=== PATIENT | female | born 1975 | race Caucasian/White ===

== ENCOUNTER 2016-08-19 09:38 | Emergency (ER) | payer OTHER ==
[2016-08-19] MEDS ORDERED: guaiFENesin/CODEINE 5 ML UDC PO STA (11:00)
[2016-08-19] MEDS ORDERED: BENZONATATE 100 MG CAPSULE PO STA (11:00)
[2016-08-19] MEDS ORDERED: guaiFENesin/CODEINE 5 ML UDC ONE (11:04)
[2016-08-19] MEDS ORDERED: BENZONATATE 100 MG CAPSULE PO ONE (11:04)
== END 2016-08-19 12:26 | disposition home or self-care (01) ==
DX: J18.9 Pneumonia, unspecified organism (principal); Z87.891 Personal history of nicotine dependence
CPT/HCPCS: 71020; 99283; 99284; A9270

== ENCOUNTER 2017-05-28 17:05 | Emergency (ER) | payer OTHER ==
--- NOTE | 2017-05-28 17:12 | ED Physician Documentation ---
History of Present Illness - Stated complaint Stated Complaint: SOURCE - History obtained from History obtained from: Patient - History of Present Illness Timing: Other (She was at the dentist today and the hygenist accidentally struck her own hand (the hygenist's), With this patient's scalpel, the patient was sent here for source testing, previous routine screenings for infectious illnesses have been negative and she has had no high risk behaviors in the past. ) Review of Systems Constitutional: reports: Reviewed and negative Cardiac: reports: Reviewed and negative Respiratory: reports: Reviewed and negative PD PAST MEDICAL HISTORY - Past Medical History Neuro: Headache/migraine GI: Other - Past Surgical History Past Surgical History: Yes Ortho: Other - Present Medications Home Medications: Ambulatory Orders Medication Instructions Recorded Confirmed Cetirizine [ZyrTEC] 10 mg PO DAILY 05/28/17 05/28/17 - Allergies Allergies/Adverse Reactions: Allergies Allergy/AdvReac Type Severity Reaction Status Date / Time No Known Drug Allergies Allergy Verified 08/19/16 09:41 - Social History Does the pt smoke?: No Smoking Status: Former smoker Does the pt drink ETOH?: Yes Does the pt have substance abuse?: No - Immunizations Immunizations are current?: Yes PD ED PE NORMAL - Vitals Vital signs reviewed: Yes - General General: Alert and oriented X 3, No acute distress - Neuro Neuro: Alert and oriented X 3, Normal speech - Psych Psych: Normal mood, Normal affect Results - Vitals Vitals: Vital Signs - 24 hr 05/28/17 17:09 Temperature 36.5 C Heart Rate 91 Respiratory 18 Rate Blood Pressure 120/76 O2 Saturation 96 Oxygen O2 Source Room air Departure - Departure Disposition: 01 Home, Self Care Clinical Impression: Exposure to blood-borne pathogen Condition: Stable Comments: Call your doctor to arrange a follow-up appointment, make the next available appointment. In the interim, return anytime if worse or if new symptoms develop.
[2017-05-28 17:18] VITALS: BP 120/76
== END 2017-05-28 17:29 | disposition home or self-care (01) ==
LOC: ED 17:05
DX: Z77.21 Contact with and (suspected) exposure to potentially hazardous body fluids (principal); Y92.531 Health care provider office as the place of occurrence of the external cause
CPT/HCPCS: 80074; 87389; 99282; 99283

== ENCOUNTER 2018-03-09 10:01 | Outpatient (CLI) | payer OTHER | END 2018-03-09 10:02 | disposition home or self-care (01) | LOC: LAB 10:01 | PROVIDERS: ATTEND Obstetrics & Gynecology | DX: O20.0 Threatened abortion (principal) | CPT/HCPCS: 36415; 84702 ==

== ENCOUNTER 2018-03-11 21:49 | Outpatient (CLI) | payer OTHER ==
--- NOTE | 2018-03-11 23:24 | Ultrasound Report ---
Procedure Date: 03/11/2018 Accession Number: [id number] / [id number] Procedure: US - OB First Trimester CPT Code: FULL RESULT: EXAM: FIRST TRIMESTER OBSTETRIC ULTRASOUND (Less than 11 weeks) EXAM DATE: 03/11/2018 10:06 PM. CLINICAL HISTORY: THREATENED . LMP: 01/29/2018, EGA 7 weeks 2 days, NELIA 10/26/2018. COMPARISONS: None. TECHNIQUE: Transabdominal and transvaginal ultrasound examination with static image documentation. ASSESSMENT: Gestational Sac: Single intrauterine. Normal shape. Mean gestational sac diameter: 10 mm = 5 weeks 0 days, NELIA of 11/11/2018. Embryo: Not seen. Cardiac activity: Not seen. Yolk sac: 0.8 mm. Amniotic fluid: Not accurately assessed at this gestational age. Early placenta: Not visible at this gestational age. Other: No perigestational fluid collection demonstrated. MATERNAL STRUCTURES: Uterus: Anteverted. Unremarkable. Cervix: Closed. Right Ovary/Adnexa: Unremarkable. The ovary measures 2.2 x 1.3 x 2.1 cm. Left Ovary/Adnexa: Unremarkable. The ovary measures 2.4 x 2.8 x 2.3 cm, volume 8.1 cc. 1.9 cm corpus luteum. Free Fluid: None. Other: None. IMPRESSION: 1. Single intrauterine gestational sac containing a yolk sac. The embryo is not yet seen. Gestational age based on the gestational sac is 5 weeks 0 days. KATH The call report notification system was initiated by Dr. Monika Ho at 23:18 hrs on 03/11/18. The above findings were discussed with Dr Hussain Dr by Dr. Monika Ho at 23:22 hrs on 03/11/18.
== END 2018-03-11 21:50 | disposition home or self-care (01) ==
LOC: DI 21:49
PROVIDERS: ATTEND Obstetrics & Gynecology
DX: O20.0 Threatened abortion (principal)
CPT/HCPCS: 76801; 76817

== ENCOUNTER 2018-03-28 16:44 | Outpatient (CLI) | payer OTHER ==
--- NOTE | 2018-03-29 09:10 | Ultrasound Report ---
Procedure Date: 03/28/2018 Accession Number: [id number] / [id number] Procedure: US - OB First Trimester CPT Code: FULL RESULT: EXAM: FIRST TRIMESTER OBSTETRIC ULTRASOUND (Less than 11 weeks) EXAM DATE: 03/28/2018 05:05 PM. CLINICAL HISTORY: ENCOUNTER FOR TEST, RESULT POSITIVE. LMP: 01/19/2018. COMPARISONS: None. TECHNIQUE: Transabdominal and transvaginal ultrasound examination with static image documentation. CLINICAL DATES: EGA 9 weeks/5 days with NELIA 10/26/2018 based on LMP . ASSESSMENT: Gestational Sac: Single intrauterine. Mean gestational sac diameter: 12.3 mm = 6 weeks. Embryo: CRL (crown-rump length) no pole yolk sac: 4.7 mm. Amniotic fluid: Not accurately assessed at this gestational age. Early placenta: Not visible at this gestational age. Other: Right perigestational fluid collection demonstrated. MATERNAL STRUCTURES: Uterus: Anteverted/. Unremarkable. Cervix: Closed. Right Ovary/Adnexa: Unremarkable. Left Ovary/Adnexa: Unremarkable. Free Fluid: None. Other: None. 6 weeks IMPRESSION: 1. Intrauterine with gestational sac with no pole 6 weeks 0 days which is discordant with clinical dates. 2. Right perigestational fluid collection RADIA
--- NOTE | 2018-03-29 09:26 | Ultrasound Report ---
Procedure Date: 03/28/2018 Accession Number: [id number] / [id number] Procedure: US - OB Transvaginal CPT Code: FULL RESULT: EXAM: FIRST TRIMESTER OBSTETRIC ULTRASOUND (Less than 11 weeks) EXAM DATE: 03/28/2018 05:05 PM. CLINICAL HISTORY: ENCOUNTER FOR TEST, RESULT POSITIVE. LMP: 01/19/2018. COMPARISONS: None. TECHNIQUE: Transabdominal and transvaginal ultrasound examination with static image documentation. CLINICAL DATES: EGA 9 weeks/5 days with NELIA 10/26/2018 based on LMP . ASSESSMENT: Gestational Sac: Single intrauterine. Mean gestational sac diameter: 12.3 mm = 6 weeks. Embryo: CRL (crown-rump length) no pole yolk sac: 4.7 mm. Amniotic fluid: Not accurately assessed at this gestational age. Early placenta: Not visible at this gestational age. Other: Right perigestational fluid collection demonstrated. MATERNAL STRUCTURES: Uterus: Anteverted/. Unremarkable. Cervix: Closed. Right Ovary/Adnexa: Unremarkable. Left Ovary/Adnexa: Unremarkable. Free Fluid: None. Other: None. 6 weeks IMPRESSION: 1. Intrauterine with gestational sac with no pole 6 weeks 0 days which is discordant with clinical dates. 2. Right perigestational fluid collection RADIA
== END 2018-03-28 16:45 | disposition home or self-care (01) ==
LOC: DI 16:44
PROVIDERS: ATTEND Obstetrics & Gynecology
DX: Z32.01 Encounter for pregnancy test, result positive (principal)
CPT/HCPCS: 76801; 76817

== ENCOUNTER 2018-03-29 15:02 | Outpatient (CLI) | payer OTHER | END 2018-03-29 15:03 | disposition home or self-care (01) | LOC: LAB 15:02 | PROVIDERS: ATTEND Obstetrics & Gynecology | DX: O02.0 Blighted ovum and nonhydatidiform mole (principal) | CPT/HCPCS: 36415; 84702 ==

== ENCOUNTER 2018-03-31 12:30 | Outpatient (CLI) | payer OTHER | END 2018-03-31 12:31 | disposition home or self-care (01) | LOC: LAB 12:30 | PROVIDERS: ATTEND Obstetrics & Gynecology | DX: O02.0 Blighted ovum and nonhydatidiform mole (principal) | CPT/HCPCS: 36415; 84702 ==

== ENCOUNTER 2018-04-17 13:19 | Outpatient (CLI) | payer OTHER ==
[2018-04-17 13:50] LABS: BASOPHILS # (AUTO) 0.1 10^3/uL (0.0-0.1); BASOPHILS % (AUTO) 0.9 %; EOSINOPHILS # (AUTO) 0.1 10^3/uL (0.0-0.7); EOSINOPHILS % (AUTO) 1.5 %; LYMPHOCYTES # (AUTO) 2.8 10^3/uL (1.5-3.5); LYMPHOCYTES % (AUTO) 40.6 %; MEAN CORPUSCULAR HEMOGLOBIN 30.9 pg (27.0-31.0); MEAN CORPUSCULAR HGB CONC 35.6 g/dL (32.0-36.0); MEAN CORPUSCULAR VOLUME 86.6 fL (81.0-99.0); MEAN PLATELET VOLUME 8.1 fL (7.9-10.8); MONOCYTES # (AUTO) 0.6 10^3/uL (0.0-1.0); MONOCYTES % (AUTO) 8.1 %; NEUTROPHILS # (AUTO) 3.4 10^3/uL (1.5-6.6); NEUTROPHILS % (AUTO) 48.9 %; PLT - PLATELET COUNT 254 10^3/uL (130-450); RED BLOOD COUNT 4.55 10^6/uL (4.20-5.40); RED CELL DISTRIBUTION WIDTH 12.6 % (12.0-15.0); WHITE BLOOD COUNT 6.9 x10^3/uL (4.8-10.8)
[2018-04-17 14:25] LABS: BILIRUBIN,URINE NEGATIVE (NEGATIVE); GLUCOSE, URINE (UA) NEGATIVE (NEGATIVE); KETONES,URINE (UA) NEGATIVE (NEGATIVE); LEUKOCYTE ESTERASE, URINE NEGATIVE (NEGATIVE); NITRITE,URINE NEGATIVE (NEGATIVE); OCCULT BLOOD,URINE NEGATIVE (NEGATIVE); PROTEIN,URINE NEGATIVE (NEGATIVE); UROBILINOGEN,URINE 0.2 (NORMAL) E.U./dL (NORMAL)
[2018-04-17 14:28] LABS: CLARITY,URINE CLEAR (CLEAR)
== END 2018-04-17 13:20 | disposition home or self-care (01) ==
LOC: LAB 13:19
PROVIDERS: ATTEND Obstetrics & Gynecology
DX: Z01.812 Encounter for preprocedural laboratory examination (principal); O02.1 Missed abortion
CPT/HCPCS: 36415; 81003; 85025; 86850; 86870; 86900; 86901

== ENCOUNTER 2018-04-19 06:18 | Day surgery (SDC) | payer OTHER ==
--- NOTE | 2018-04-18 16:33 | HISTORY & PHYSICAL EXAMINATION ---
DATE OF SERVICE: Physician: Deon El MD DIAGNOSIS 1. Incomplete AB. 2. Early first trimester failure. 3. Failed trial of Cytotec evacuation x2. 4. Ultrasound documented conceptual products. 5. Septate Uterus HISTORY OF PRESENT ILLNESS: The patient is a 42-year-old , 1, para 0 woman who had a documented early wastage on formal ultrasound. Reference 03/29/2018 report. Repeat ultrasound found an embryonic gestation. After expectant management, the patient elected to undergo two courses of Cytotec, which did not result in evacuation. She had some brownish discharge, but no bright red bleeding, conceptual products, or foul discharge. Office ultrasound documents conceptual products and incomplete with uterine septum. After discussing her different options, the patient strongly desires D and C, mostly to end this event. Risks of D and C were reviewed, inclusive of bleeding , transfusion, infection, perforation, and an incomplete evacuation. The patient is known Rh negative, and received RhoGAM on 04/05/2018. Menses are every 29-31 days and last up to 7 days. There is no significant dysmenorrhea. Preferred contraceptive was NuvaRing. She presumed infertility, therefore was not on any contraceptive. Last Pap smear was in 02/2018, and normal. Two prior dysplastic Pap smears, ASCUS, with negative colposcopy in 2007. PAST MEDICAL HISTORY: 1. This patient carries a presumptive history of polycystic ovarian syndrome. 2. Situational anxiety. PAST SURGICAL HISTORY: Right shoulder SLAP repair. No nonsurgical admissions. ALLERGIES: NO KNOWN DRUG ALLERGIES. MEDICATIONS 1. Metformin 500 mg. 2. vitamins. 3. Super B complex with vitamin C and zinc. 4. Zyrtec. REVIEW OF SYSTEMS CONSTITUTIONAL: Negative. HEENT: Seasonal rhinitis. No asthma. RESPIRATORY: Negative. CARDIOVASCULAR: Negative. GENITOURINARY: Reference HPI. I GASTROINTESTINAL: Celiac disease. MUSCULOSKELETAL: Currently negative. DERMATOLOGIC: Negative. BREASTS: No findings. NEUROLOGIC: Negative. PSYCHOLOGIC: Negative. FAMILY HISTORY: Breast cancer, colon cancer, skin cancer, diabetes, depression , [place], hypertension, stroke. SOCIAL HISTORY: . Former smoker. No habitual alcohol or drug use. 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 PHYSICAL EXAMINATION GENERAL: Well groomed, pleasant, cooperative. HEENT: Supple neck. No thyromegaly. LUNGS: Clear to auscultation. CARDIOVASCULAR: Regular. No murmur, no gallop. BREASTS: Deferred. ABDOMEN: Nondistended, nontender. GENITOURINARY: External genitalia no lesions. Vagina: No blood or discharge. Cervix: Closed, soft. Uterus: Six week size. Office ultrasound finds a 2 x 3 x 3.5 collection of conceptual products with a remnant of a gestational sac. Adnexa nontender, unremarkable. MUSCULOSKELETAL: Moves all four extremities well. NEUROLOGIC: Cranial nerves grossly intact. Normal sensorium and motor function. LABORATORY DATA: Preop labs pending. ASSESSMENT AND PLAN: The patient had an unintended because she presumed herself to be infertile. There have been several ultrasounds that have documented early first trimester wastage, and the patient elected to have Cytotec evacuation. Cytotec evacuation failed despite two doses. The patient strongly desires D and C, to end this problem so that she can move on. We explained D and C in detail and ACOG information brouchure was reviewed. In terms of D and C, she has a septum on my ultrasound, which may make D and C difficult. If we do not obtain moderate amount of conceptual products, we will consider either ultrasound-guided D and C or hysteroscopy. PLAN: Dilatation and curettage with suction, possibly aided with ultrasound or hysteroscopy to evacuation of the uterus seems incomplete. TD: 04/18/2018 12:49 MTDD
[2018-04-19] MEDS ORDERED: LACTATED RINGERS 1,000 ML IV ONE ×2 (06:30→08:38)
--- NOTE | 2018-04-19 07:03 | ANESTHESIA ---
Pre-Anesthesia VS, & Labs - Diagnosis Missed AB - Procedure D&C Vital Signs: Temp Pulse Resp BP Pulse Ox 36.8 C 16 116/81 H 97 04/19/18 06:35 04/19/18 06:35 04/19/18 06:35 04/19/18 06:35 Pulse 86 Height 5 ft 4 in Weight (kg) 88 kg Body Mass Index 32.5 - NPO >8 hours - Is Patient ?: Not Applicable (Missed AB, HcG positive) Home Medications and Allergies Home Medications: Ambulatory Orders Medication Instructions Recorded Confirmed Cetirizine [ZyrTEC] 10 mg PO DAILY 05/28/17 05/28/17 Allergies/Adverse Reactions: Allergies Allergy/AdvReac Type Severity Reaction Status Date / Time No Known Drug Allergies Allergy Verified 08/19/16 09:41 Anes History & Medical History - Anesthetic History Anesthesia Complications: reports: No previous complications Family history of Anesthesia Complications: Denies Family history of Malignant Hyperthermia: Denies - Medical History Cardiovascular: reports: None Pulmonary: reports: None Gastrointestinal: reports: None Urinary: reports: None Neuro: reports: None Musculoskeletal: reports: None Endocrine/Autoimmune: reports: None Blood Disorders: reports: None Skin: reports: None Smoking Status: Former smoker (quit 10 years ago) Psychosocial: reports: No issues indicated - Surgical History Eyes Ears Nose Throat (EENT): Tonsil/Adenoidectomy Orthopedic: Shoulder arthroplasty (SLAP procedure) Exam General: Alert, Oriented x3, Cooperative, No acute distress Dental: WNL Mouth Openin Fingerbreadth Neck Mobility: Normal Mallampati classification: III Thyromental Distance: 4-6 cm Respiratory: Lungs clear, Normal breath sounds, No respiratory distress, No accessory muscle use Cardiovascular: Regular rate, Normal S1, Normal S2, No murmurs Plan Anesthesia Type: General Consent for Procedure(s) Verified and Reviewed: Yes Code Status: Attempt Resuscitation ASA classification: 1-Healthy patient Is this case an emergency?: No
[2018-04-19] MEDS ORDERED: ONDANSETRON 4 MG/2 ML VIAL IVP ONE (08:00)
[2018-04-19] MEDS ORDERED: PROPOFOL 200 MG/20 ML VIAL IVP ONE (08:00)
[2018-04-19] MEDS ORDERED: fentaNYL 100 MCG/2 ML VIAL IVP ONE (08:00)
[2018-04-19] MEDS ORDERED: MIDAZOLAM 2 MG/2 ML VIAL IVP ONE (08:00)
[2018-04-19] MEDS ORDERED: LIDOCAINE-MPF 2% 5 ML VIAL IM ONE (08:00)
[2018-04-19] MEDS ORDERED: DEXAMETHASONE 4 MG/ML VIAL IVP ONE (08:00)
[2018-04-19] MEDS ORDERED: KETOROLAC 30 MG/ML VIAL IVP ONE (08:00)
[2018-04-19] MEDS ORDERED: OXYTOCIN 10 UNIT/ML VIAL IV ONE (08:00)
--- NOTE | 2018-04-19 08:25 | OPERATIVE REPORT ---
Operative Report - General Procedure Date: 04/19/18 Planned Procedure: Dilatation and curettage with suction; possible ultrasound guidance, possib Pre-Op Diagnosis: Incomplete , Cytotec evacuation failure, septate uterus Procedure Performed: Dilatation and curettage with suction Post Op Diagnosis: Evacuation conceptual products, same as above - Procedure Note Primary Surgeon: Deon El MD, FACOG FICS Anesthesia Provider: Frankie Da Silva, certified nurse stripper machine operator Anesthesia Technique: General LMA Pathology: Uterine curettage specimen, products of conception IV Fluids (mL): 400 Estimated Blood Loss (mL): 50 Urine Output (mL): 40 Drain/Tube Type: Other ( patient straight cath post procedure transfer text) Complications: None - Other Other Information/Narrative: Findings 1. Uterus is bulky and 6 week size with the office partially open now and membranes present. No bleeding or purulent discharge. Normal size and mobile ovaries. During curettage process midline septum sensed. 2. Expected amount of conceptual products obtained Technique Prior to the procedure I had a discussion with the patient and her about the mechanics of D&C, the risks and potential benefits. Informed consent paperwork was signed. Portable ultrasound and sterile transvaginal probe covers were placed in the OR in case ultrasound guidance was necessary. Patient was placed on the OR table in the supine position. She was uneventfully induced and LMA placed. She was moved to the low dorsal lithotomy position on yellowfin stirrups. She was prepped and draped in a standard sterile fashion. Timeout briefing was done per protocol. Exam under anesthesia was conducted reference findings section. Graves speculum was placed and the cervix easily visualized. Anterior cervical lip was grasped with a single-tooth tenaculum. The endocervical canal was gently dilated with serial application of Hegar probes to size #10. Medium size curette was used to sample all quadrants of the uterus. The majority of tissue was found in the left uterine horn. #10 section curette was then attached to the vacuum machine and calibrated to -60 mm. The suction curette was then guided into the uterus and manipulated in a systematic fashion which harvested a moderate amount of tissue. Next sharp curette was reintroduced to ensure that the POC tissue had been harvested. Uterine cry was elicited both in the right and left uterine horns. At this point the procedure was terminated. Ultrasound guidance was not required. All instruments were removed from the vagina and uterus. Bleeding was very light. The uterus responded well to Pitocin. The patient was uneventfully awakened and taken to recovery in good condition. Intraoperative events were explained to patient and . Preoperative medications: Toradol 30 mg IV Pitocin 10 units IV Disposition: Warning sign and callback instructions were reviewed. Patient was discharged to home. She is a Rh- and RhoGam candidate which was ordered to be given prior to discharge. Patient will be seen in follow-up 2 weeks from today. Discharge medications Motrin 600 every 6 hours as needed.
[2018-04-19] MEDS: fentaNYL 100 MCG/2 ML VIAL ONE ×4 (08:32→08:58)
[2018-04-19] MEDS ORDERED: HYDROmorphone 0.5 MG/0.5 ML SYRINGE IVP PRN (08:58)
[2018-04-19] MEDS ORDERED: LACTATED RINGERS 1,000 ML IV SCH (09:00)
[2018-04-19] MEDS ORDERED: IBUPROFEN 600 MG TABLET PO SCH (09:00)
[2018-04-19] MEDS ORDERED: oxyCOD/ACETAMIN 5 MG/325 MG TABLET PO PRN (09:01)
[2018-04-19] MEDS ORDERED: oxyCOD/ACETAMIN 5 MG/325 MG TABLET PO ONE (09:24)
[2018-04-19] MEDS ORDERED: RHO(D) IMMUNE GLOBULIN 300 MCG SYRINGE IM ONE (09:30)
[2018-04-19 10:18] VITALS: BP 112/67
== END 2018-04-19 06:19 | disposition home or self-care (01) ==
LOC: SDS 06:18
PROVIDERS: ATTEND Obstetrics & Gynecology
PROC: 0U7C7ZZ Dilation of Cervix, Via Natural or Artificial Opening (ICD-10-PCS; principal; 2018-04-19 07:30)
DX: O02.1 Missed abortion (principal); F41.8 Other specified anxiety disorders; K90.0 Celiac disease; Z67.91 Unspecified blood type, Rh negative; Z87.891 Personal history of nicotine dependence
CPT/HCPCS: 59820; A9270; J7120

== ENCOUNTER 2018-09-03 15:01 | Outpatient (CLI) | payer OTHER | END 2018-09-03 15:02 | disposition home or self-care (01) | LOC: LAB.R 15:01 | PROVIDERS: ATTEND Registered Nurse | DX: Z31.69 Encounter for other general counseling and advice on procreation (principal) | CPT/HCPCS: 87491; 87591 ==

== ENCOUNTER 2018-09-03 15:10 | Outpatient (CLI) | payer OTHER ==
[2018-09-05 07:06] LABS: PROGESTERONE 7.4 ng/mL
== END 2018-09-03 15:11 | disposition home or self-care (01) ==
LOC: LAB 15:10
PROVIDERS: ATTEND Registered Nurse
DX: Z31.69 Encounter for other general counseling and advice on procreation (principal)
CPT/HCPCS: 36415; 81599; 82670; 84144; 84443; 87491; 87591

== ENCOUNTER 2018-10-16 11:04 | Outpatient (CLI) | payer OTHER ==
[2018-10-16 18:43] LABS: BASOPHILS % (AUTO) 0.7 %; EOSINOPHILS # (AUTO) 0.1 10^3/uL (0.0-0.7); EOSINOPHILS % (AUTO) 1.5 %; HGB - HEMOGLOBIN 13.9 g/dL (12.0-16.0); LYMPHOCYTES # (AUTO) 2.7 10^3/uL (1.5-3.5); LYMPHOCYTES % (AUTO) 40.3 %; MEAN CORPUSCULAR HEMOGLOBIN 29.9 pg (27.0-31.0); MEAN CORPUSCULAR HGB CONC 33.9 g/dL (32.0-36.0); MEAN CORPUSCULAR VOLUME 88.3 fL (81.0-99.0); MEAN PLATELET VOLUME 8.3 fL (7.9-10.8); MONOCYTES # (AUTO) 0.4 10^3/uL (0.0-1.0); MONOCYTES % (AUTO) 6.4 %; NEUTROPHILS # (AUTO) 3.5 10^3/uL (1.5-6.6); NEUTROPHILS % (AUTO) 51.1 %; PLT - PLATELET COUNT 262 10^3/uL (130-450); RED BLOOD COUNT 4.63 10^6/uL (4.20-5.40); RED CELL DISTRIBUTION WIDTH 12.5 % (12.0-15.0); WHITE BLOOD COUNT 6.8 x10^3/uL (4.8-10.8)
== END 2018-10-16 11:05 | disposition home or self-care (01) ==
LOC: LAB.N 11:04
PROVIDERS: ATTEND Registered Nurse
DX: O09.291 Supervision of pregnancy with other poor reproductive or obstetric history, first trimester (principal); O09.521 Supervision of elderly multigravida, first trimester
CPT/HCPCS: 36415; 84144; 84443; 84702; 85025

== ENCOUNTER 2018-10-18 08:46 | Outpatient (CLI) | payer OTHER | END 2018-10-18 23:59 | disposition home or self-care (01) | LOC: LAB.N 08:46 | PROVIDERS: ATTEND Registered Nurse | DX: O09.291 Supervision of pregnancy with other poor reproductive or obstetric history, first trimester (principal) | CPT/HCPCS: 36415; 84702 ==

== ENCOUNTER 2018-10-21 08:28 | Outpatient (CLI) | payer OTHER | END 2018-10-21 23:59 | disposition home or self-care (01) | LOC: LAB.N 08:28 | PROVIDERS: ATTEND Registered Nurse | DX: O09.291 Supervision of pregnancy with other poor reproductive or obstetric history, first trimester (principal) | CPT/HCPCS: 36415; 84702 ==

== ENCOUNTER 2018-11-22 06:14 | Day surgery (SDC) | payer OTHER ==
[2018-11-22] MEDS ORDERED: LACTATED RINGERS 1,000 ML IV ONE ×2 (07:03→08:12)
--- NOTE | 2018-11-22 07:09 | ANESTHESIA ---
Pre-Anesthesia VS, & Labs - Diagnosis Missed AB - Procedure D&C Vital Signs: Temp Pulse Resp BP Pulse Ox 36.4 C L 79 99 H 108/73 99 11/22/18 06:58 11/22/18 06:58 11/22/18 06:58 11/22/18 06:58 11/22/18 06:58 Height 5 ft 4 in Weight (kg) 81 kg Body Mass Index 32.5 - NPO >8 hours - Is Patient ?: Yes (missed ab) Home Medications and Allergies Home Medications: Ambulatory Orders Aspirin [Aspirin EC] 81 mg PO DAILY 11/20/18 EPINEPHrine [Epinephrine] 0.3 mg IJ ONCE PRN 11/20/18 Folic Acid 0.8 mg PO DAILY 11/20/18 Pnv95/Ferrous Fumarate/FA [ Tablet] 1 each PO DAILY 11/20/18 Cetirizine [ZyrTEC] 10 mg PO DAILY 05/28/17 Aspirin [Aspirin EC] 81 mg PO DAILY 11/20/18 EPINEPHrine [Epinephrine] 0.3 mg IJ ONCE PRN 11/20/18 Folic Acid 0.8 mg PO DAILY 11/20/18 Pnv95/Ferrous Fumarate/FA [ Tablet] 1 each PO DAILY 11/20/18 Allergies/Adverse Reactions: Allergies Allergy/AdvReac Type Severity Reaction Status Date / Time bee pollen Allergy Anaphylaxis Verified 11/20/18 09:59 Anes History & Medical History - Anesthetic History Anesthesia Complications: reports: No previous complications - Medical History Cardiovascular: reports: None Pulmonary: reports: None Gastrointestinal: reports: None Urinary: reports: None Neuro: reports: None Musculoskeletal: reports: None Endocrine/Autoimmune: reports: None Blood Disorders: reports: None Skin: reports: None Smoking Status: Former smoker (quit 10 years ago) Psychosocial: reports: No issues indicated - Surgical History Eyes Ears Nose Throat (EENT): Tonsil/Adenoidectomy Gynecologic: Dilation and currettage Orthopedic: Arthroscopic surgery Exam General: Alert, Oriented x3, Cooperative, No acute distress Dental: WNL Mouth Openin Fingerbreadth Neck Mobility: Normal Mallampati classification: II Thyromental Distance: 4-6 cm Respiratory: Lungs clear, Normal breath sounds, No respiratory distress, No accessory muscle use Cardiovascular: Regular rate, Normal S1, Normal S2, No murmurs Mental/Cognitive Status: Alert/Oriented X3, Normal for patient Plan Anesthesia Type: General Consent for Procedure(s) Verified and Reviewed: Yes Code Status: Attempt Resuscitation ASA classification: 1-Healthy patient Is this case an emergency?: No
[2018-11-22] MEDS ORDERED: MIDAZOLAM 2 MG/2 ML VIAL IVP ONE (07:30)
[2018-11-22] MEDS ORDERED: ONDANSETRON 4 MG/2 ML VIAL IVP ONE (07:30)
[2018-11-22] MEDS ORDERED: fentaNYL 100 MCG/2 ML VIAL IVP ONE (07:30)
[2018-11-22] MEDS ORDERED: PROPOFOL 200 MG/20 ML VIAL IVP ONE (07:30)
[2018-11-22] MEDS ORDERED: KETOROLAC 30 MG/ML VIAL IVP ONE (07:30)
[2018-11-22] MEDS ORDERED: DEXAMETHASONE 4 MG/ML VIAL IVP ONE (07:30)
[2018-11-22] MEDS ORDERED: BUPIVACAINE 0.5%-EPI 1:200000 PF 30 ML VIAL SUBQ ONE (07:51)
[2018-11-22] MEDS ORDERED: BUPIVACAINE 0.5%-EPI 1:200000 PF 30 ML VIAL ONE (07:58)
[2018-11-22] MEDS ORDERED: RHO(D) IMMUNE GLOBULIN 300 MCG SYRINGE IM ONE (08:00)
[2018-11-22] MEDS ORDERED: HYDROmorphone 0.5 MG/0.5 ML SYRINGE IVP PRN (08:14)
[2018-11-22] MEDS ORDERED: oxyCODONE 5 MG TABLET PO PRN (08:14)
[2018-11-22] MEDS ORDERED: ONDANSETRON 4 MG/2 ML VIAL IVP PRN (08:14)
--- NOTE | 2018-11-22 08:16 | Discharge Plan ---
Discharge Plan Disposition: 01 Home, Self Care Condition: Good Diet: Regular Activity Restrictions: pelvic rest for 1w Shower Restrictions: No Driving Restrictions: No No Smoking: If you smoke, Please STOP! Call for help. Follow-up with: Ragini Stark MD [Provider Admit Priv/Credential] - 1 Week
--- NOTE | 2018-11-22 08:17 | OPERATIVE REPORT ---
Operative Report - General Procedure Date: 11/22/18 Pre-Op Diagnosis: Missed Procedure Performed: Suction D&C Post Op Diagnosis: Missed - Procedure Note Primary Surgeon: Mi Secondary Surgeon: jessica Anesthesia Technique: General ET tube IV Fluids (mL): 250 Estimated Blood Loss (mL): 20 Urine Output (mL): 0 Findings: Normal vagina, vulva, cervix. Dilated to 8mm. Rhogam given
[2018-11-22] MEDS ORDERED: ONDANSETRON 4 MG/2 ML VIAL ONE (08:31)
[2018-11-22 09:48] VITALS: BP 102/78
--- NOTE | 2018-11-22 17:16 | OPERATIVE REPORT ---
DATE OF SERVICE: 11/22/2018 Physician: Ragini Stark MD PREOPERATIVE DIAGNOSIS: Missed . POSTOPERATIVE DIAGNOSIS: Missed . PROCEDURE: Suction dilation and curettage. SURGEON: Ragini Stark MD EQUAL OPPORTUNITY COUNSELOR: None. ANESTHESIA: General. ESTIMATED BLOOD LOSS: 20 mL. IV FLUIDS: 250 mL. URINE OUTPUT: Not applicable. COUNTS: Correct x2. COMPLICATIONS: None apparent. DISPOSITION: Stable to the recovery room. PROPHYLAXIS: SCDs to bilateral lower extremities. No antibiotics indicated. SPECIMENS: Products of conception sent to Pathology. COUNSELING: Te patient has a missed , and she strongly desires surgical management. She dec lines medical management, although this was recommended. She is Rh negative and received a dose of R hoGAM while in the operating room. DESCRIPTION OF PROCEDURE: The patient was brought to the operating room and induced with general ane sthesia. She was placed in low lithotomy in [facility]. A bimanual examination revealed a sm all axial uterus and no adnexal masses. She was prepped and draped in the usual sterile fashion. A speculum was placed and a single-tooth tenaculum was applied to the anterior lip of the cervix. A paracervical block was performed with 10 mL in divided doses of 0.5% Marcaine with epinephrine. The cervix was easily dilated to 8 mm. An 8 mm flexible suction curette was introduced into the uterine cavity, and the products of conception were evacuated. Three passes were performed with tissue only coming out with the first pass. A gentle pass with a curette revealed no abnormal areas within the u terus. Bedside ultrasound was attempted and failed as the patient's bladder was very empty and the uterus co uld not be visualized. Her bleeding was minimal. The speculum and tenaculum were removed. The bloo d and Betadine were washed from her body, and she was returned to the supine position prior to waking . TD: 11/22/2018 16:38
== END 2018-11-22 06:15 | disposition home or self-care (01) ==
LOC: SDS 06:14
PROVIDERS: ATTEND Obstetrics & Gynecology
PROC: 10D17Z9 Manual Extraction of Products of Conception, Retained, Via Natural or Artificial Opening (ICD-10-PCS; principal; 2018-11-22 07:30)
DX: O02.1 Missed abortion (principal); Z87.891 Personal history of nicotine dependence
CPT/HCPCS: 59820; J7120

== ENCOUNTER 2018-12-27 22:17 | Emergency (ER) | payer OTHER ==
--- NOTE | 2018-12-27 22:24 | ED Physician Documentation ---
PD HPI ABD PAIN - Stated complaint Stated Complaint: RT FLANK PX - Chief complaint Chief Complaint: Abd Pain - History obtained from History obtained from: Patient - History of Present Illness Timing - onset: How many days ago (few days) Timing - details: Gradual onset, Intermittant, Waxing and waning Pain level now: 7 Quality: Pain Location: RUQ Radiation: Lower back, Right flank Improved by: Other (no ameliorating factors) Worsened by: Eating, Palpation Associated symptoms: No: Fever, Nausea, Vomiting, Diarrhea, Constipation Similar symptoms before: Has not had sx before Recently seen: Not recently seen - Additional information Additional information: has had right flank and right back pain x 3 days, which is constant. Since yesterday, she has had right-sided abdominal pain, predominantly RUQ, intermittently and severe at times. This abdominal pain is worse with eating, palpation. Review of Systems Constitutional: reports: Reviewed and negative Cardiac: reports: Reviewed and negative Respiratory: reports: Reviewed and negative GI: reports: Abdominal Pain. 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 HEENT: Tonsil/Adenoidectomy - Present Medications Home Medications: Ambulatory Orders Medication Instructions Recorded Confirmed Cetirizine [ZyrTEC] 10 mg PO DAILY 05/28/17 11/22/18 Aspirin [Aspirin EC] 81 mg PO DAILY 11/20/18 11/22/18 EPINEPHrine [Epinephrine] 0.3 mg IJ ONCE PRN 11/20/18 11/20/18 Folic Acid 0.8 mg PO DAILY 11/20/18 11/22/18 Pnv95/Ferrous Fumarate/FA 1 each PO DAILY 11/20/18 11/22/18 [ Tablet] Hydrocodone/Acetaminophen 1 - 2 each PO Q6H PRN #20 tablet 12/28/18 [Hydrocodon-Acetaminophen 5-325] - Allergies Allergies/Adverse Reactions: Allergies Allergy/AdvReac Type Severity Reaction Status Date / Time bee pollen Allergy Anaphylaxis Verified 12/27/18 22:23 - Social History Does the pt smoke?: No Smoking Status: Former smoker (quit 10 years ago) Does the pt drink ETOH?: Yes Does the pt have substance abuse?: No - Immunizations Immunizations are current?: Yes PD ED PE NORMAL - Vitals Vital signs reviewed: Yes - General General: Alert and oriented X 3, No acute distress, Well developed/nourished - HEENT HEENT: Moist mucous membranes - Neck Neck: Supple, no meningeal sign - Cardiac Cardiac: RRR, No murmur - Respiratory Respiratory: No respiratory distress, Clear bilaterally - Abdomen Abdomen: Soft, Non distended, Other (epigastric and RUQ tenderness without rebound or guarding) - Back Back: No CVA TTP - Derm Derm: Normal color, Warm and dry, No rash - Extremities Extremities: No edema Results - Vitals Vitals: Vital Signs - 24 hr 12/27/18 12/27/18 12/28/18 22:20 22:23 00:30 Temperature 36.4 C L Heart Rate 107 H 107 H 77 Respiratory 17 17 16 Rate Blood Pressure 145/102 H 145/107 H 118/71 O2 Saturation 99 99 98 Oxygen O2 Source Room air - Labs Labs: Laboratory Tests 12/27/18 12/27/18 12/27/18 22:30 22:30 22:30 WBC 10.3 RBC 4.93 Hgb 15.1 Hct 43.5 MCV 88.3 MCH 30.7 MCHC 34.8 RDW 12.7 Plt Count 278 MPV 8.3 Neut # (Auto) 4.6 Lymph # (Auto) 4.5 H Amelia # (Auto) 1.0 Eos # (Auto) 0.2 Baso # (Auto) 0.1 Absolute Nucleated RBC 0.02 Nucleated RBC % 0.2 Sodium 138 Potassium 3.4 L Chloride 102 Carbon Dioxide 25 Anion Gap 11.0 BUN 8 Creatinine 0.7 Estimated GFR (MDRD) 92 Glucose 132 H Calcium 9.4 Total Bilirubin < 0.2 L AST 22 ALT 28 Alkaline Phosphatase 48 Total Protein 7.3 Albumin 4.2 Globulin 3.1 Albumin/Globulin Ratio 1.4 Lipase 45 Urine Color YELLOW Urine Clarity CLEAR Urine pH 6.0 Ur Specific [place] <=1.005 Urine Protein NEGATIVE Urine Glucose (UA) NEGATIVE Urine Ketones NEGATIVE Urine Occult Blood NEGATIVE Urine Nitrite NEGATIVE Urine Bilirubin NEGATIVE Urine Urobilinogen 0.2 (NORMAL) Ur Leukocyte Esterase NEGATIVE Ur Microscopic Review NOT INDICATED Urine Culture Comments NOT INDICATED - Rads (name of study) RUQ US Radiology: Prelim report reviewed, See rad report PD MEDICAL DECISION MAKING - ED course Complexity details: reviewed results, re-evaluated patient, considered differential, d/w patient ED course: On reevaluation, after tests resulted including US, patient appears to be uncomfortable (mild/moderate painful distress). However, she requests d/c home. She says she has dogs she needs to tend to and needs to get family member home so they can then go to work. She declines pain medications that will prohibit driving home from ED (but understands no driving after taking hydrocodone). I encouraged her to return if pain become uncontrolled with rx, or if other signs/symptoms develop such as intractable vomiting or fever Departure - Departure Disposition: 01 Home, Self Care Clinical Impression: Biliary colic Condition: Good Instructions: ED Gallstone W Biliary Colic Follow-Up: Joe Strange MD [Provider Admit Priv/Credential] - (Call to arrange for soonest available appointment) Surya Moseley PA [Primary Care Provider] - Prescriptions: Hydrocodone/Acetaminophen [Hydrocodon-Acetaminophen 5-325] 1 - 2 each PO Q6H PRN #20 tablet PRN Reason: pain Discharge Date/Time: 12/28/18 01:27
[2018-12-27] MEDS ORDERED: KETOROLAC 30 MG/ML VIAL IVP STA (22:47)
[2018-12-27 22:52] LABS: BASOPHILS # (AUTO) 0.1 10^3/uL (0.0-0.1); BASOPHILS % (AUTO) 0.5 %; EOSINOPHILS # (AUTO) 0.2 10^3/uL (0.0-0.7); EOSINOPHILS % (AUTO) 1.8 %; HGB - HEMOGLOBIN 15.1 g/dL (12.0-16.0); LYMPHOCYTES # (AUTO) 4.5 10^3/uL (1.5-3.5); LYMPHOCYTES % (AUTO) 43.4 %; MEAN CORPUSCULAR HEMOGLOBIN 30.7 pg (27.0-31.0); MEAN CORPUSCULAR HGB CONC 34.8 g/dL (32.0-36.0); MEAN CORPUSCULAR VOLUME 88.3 fL (81.0-99.0); MEAN PLATELET VOLUME 8.3 fL (7.9-10.8); MONOCYTES % (AUTO) 9.4 %; NEUTROPHILS # (AUTO) 4.6 10^3/uL (1.5-6.6); NEUTROPHILS % (AUTO) 44.9 %; PLT - PLATELET COUNT 278 10^3/uL (130-450); RED BLOOD COUNT 4.93 10^6/uL (4.20-5.40); RED CELL DISTRIBUTION WIDTH 12.7 % (12.0-15.0); WHITE BLOOD COUNT 10.3 x10^3/uL (4.8-10.8)
[2018-12-27 22:53] LABS: BILIRUBIN,URINE NEGATIVE (NEGATIVE); GLUCOSE, URINE (UA) NEGATIVE (NEGATIVE); KETONES,URINE (UA) NEGATIVE (NEGATIVE); LEUKOCYTE ESTERASE, URINE NEGATIVE (NEGATIVE); NITRITE,URINE NEGATIVE (NEGATIVE); OCCULT BLOOD,URINE NEGATIVE (NEGATIVE); PROTEIN,URINE NEGATIVE (NEGATIVE); UROBILINOGEN,URINE 0.2 (NORMAL) E.U./dL (NORMAL)
[2018-12-27 22:55] LABS: CLARITY,URINE CLEAR (CLEAR)
[2018-12-27 23:01] LABS: ALBUMIN 4.2 g/dL (3.2-5.5); ALBUMIN/GLOBULIN RATIO 1.4 (1.0-2.2); ALKALINE PHOSPHATASE 48 IU/L (42-121); ALT ALANINE AMINOTRANSFERASE 28 IU/L (10-60); AST ASPARTATE AMINOTRANSFERASE 22 IU/L (10-42); BILIRUBIN,TOTAL < 0.2 mg/dL (0.2-1.0); BUN - BLOOD UREA NITROGEN 8 mg/dL (6-20); CALCIUM 9.4 mg/dL (8.5-10.3); CARBON DIOXIDE - CO2 25 mmol/L (21-32); CHLORIDE 102 mmol/L (101-111); CREATININE 0.7 mg/dL (0.4-1.0); GFR - MDRD 92 (>89); GLUCOSE 132 mg/dL (70-100); LIPASE 45 U/L (22-51); SODIUM 138 mmol/L (135-145); TOTAL PROTEIN 7.3 g/dL (6.7-8.2)
--- NOTE | 2018-12-28 00:28 | Ultrasound Report ---
Reason: RUQ pain Procedure Date: 12/28/2018 Accession Number: [id number] / [id number] Procedure: US - Abdomen Limited CPT Code: FULL RESULT: EXAM: ABDOMEN ULTRASOUND LIMITED, RUQ EXAM DATE: 12/27/2018 11:41 PM. CLINICAL HISTORY: RUQ pain. COMPARISON: None. TECHNIQUE: Real-time scanning was performed with static images obtained. FINDINGS: Liver: Diffusely echogenic. Right lobe is 16.7 cm. Main portal vein flow: Hepatopetal. Gallbladder: Diffusely full of gallstones. No abnormal wall thickening of the visualized gallbladder wall. No sonographic Varghese sign. Biliary System: CBD measures 4 mm. No intrahepatic or extrahepatic ductal dilatation. Other: Right kidney demonstrates no hydronephrosis. Pancreas obscured by overlying bowel gas. IMPRESSION: Gallbladder diffusely full of gallstones. RADIA
[2018-12-28 00:33] VITALS: BP 118/71
[2018-12-28] MEDS ORDERED: HYDROcod/ACET 5/325 Prepack 4 PO STA (01:20)
== END 2018-12-28 01:27 | disposition home or self-care (01) ==
LOC: ED 22:17
DX: K80.20 Calculus of gallbladder without cholecystitis without obstruction (principal); Z87.891 Personal history of nicotine dependence; Z79.82 Long term (current) use of aspirin
CPT/HCPCS: 36415; 76705; 80053; 81001; 81003; 83690; 85025; 87086; 96374; 99283

== ENCOUNTER 2018-12-30 13:07 | Day surgery (SDC) | payer OTHER ==
--- NOTE | 2018-12-30 13:36 | ED Physician Documentation ---
PD HPI ABD PAIN - Stated complaint Stated Complaint: ABD PX N - Chief complaint Chief Complaint: Abd Pain - History obtained from History obtained from: Patient - History of Present Illness Timing - onset: How many days ago (5-6) Timing - duration: Days (5-6) Timing - details: Gradual onset, Constant, Waxing and waning Quality: Cramping, Aching, Pain Location: RUQ Radiation: Right flank. No: Chest Associated symptoms: Nausea. No: Fever, Vomiting, Diarrhea, Constipation, Dysuria Similar symptoms before: Has not had sx before Recently seen: Emergency Dept (She had the onset of the right upper quadrant right flank pain starting about 5 or 6 days ago gradually and increased over a day or so. Is associated with nausea but no vomiting. No constipation. She had initially some loose stool but not overt diarrhea. She has not had any diarrhea in the last 2 to 3 days. She was seen in the emergency department 3 days ago and had lab tests, urine test and ultrasound with diagnosis of presumed biliary colic based on ultrasound finding of gallstones. However there is no wall thickening nor pericholecystic fluid. Her labs were normal as was her kidney size on ultrasound and urine test. There is no other demonstrable cause for her pain. She was prescribed pain medicine and antiemetics. She states the pain is persisted significantly over the last 3 days and worsened again today. She called the surgical office and was given an appointment for next week. She is here for repeat evaluation.) Review of Systems Constitutional: reports: Fatigue. denies: Fever, Chills, Myalgias Nose: denies: Rhinorrhea / runny nose, Congestion Throat: denies: Sore throat Cardiac: denies: Chest pain / pressure, Palpitations Respiratory: denies: Cough GI: reports: Abdominal Pain, Nausea, Diarrhea (loose for couple of days, but normal the past 2-3 days.). denies: Vomiting, Constipation : denies: Dysuria, Frequency Skin: denies: Rash Neurologic: reports: Generalized weakness. 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 HEENT: Tonsil/Adenoidectomy - Present Medications Home Medications: Ambulatory Orders Medication Instructions Recorded Confirmed Cetirizine [ZyrTEC] 10 mg PO DAILY 05/28/17 11/22/18 Aspirin [Aspirin EC] 81 mg PO DAILY 11/20/18 11/22/18 EPINEPHrine [Epinephrine] 0.3 mg IJ ONCE PRN 11/20/18 11/20/18 Folic Acid 0.8 mg PO DAILY 11/20/18 11/22/18 Pnv95/Ferrous Fumarate/FA 1 each PO DAILY 11/20/18 11/22/18 [ Tablet] Hydrocodone/Acetaminophen 1 - 2 each PO Q6H PRN #20 tablet 12/28/18 [Hydrocodon-Acetaminophen 5-325] - Allergies Allergies/Adverse Reactions: Allergies Allergy/AdvReac Type Severity Reaction Status Date / Time bee pollen Allergy Anaphylaxis Verified 12/30/18 13:15 - Social History Does the pt smoke?: No Smoking Status: Former smoker (quit 10 years ago) Does the pt drink ETOH?: Yes Does the pt have substance abuse?: No - Immunizations Immunizations are current?: Yes PD ED PE NORMAL - Vitals Vital signs reviewed: Yes - General General: Alert and oriented X 3, Well developed/nourished, Other (appears in pain, holding RUQ.) - HEENT HEENT: Moist mucous membranes, Pharynx benign - Neck Neck: Supple, no meningeal sign, No adenopathy - Cardiac Cardiac: RRR, No murmur - Respiratory Respiratory: Clear bilaterally - Abdomen Abdomen: Soft, Non distended, No organomegaly, Other (She is tender in the right upper quadrant and also towards the right lateral upper abdomen. There is localized guarding. There is no rebound tenderness but there is some percussion tenderness locally. The rest of the abdomen is nontender. There is no distention. Bowel sounds are diminished.) - Female Female : Deferred - Rectal Rectal: Deferred - Back Back: No CVA TTP - Derm Derm: Normal color, No rash - Extremities Extremities: No deformity, No tenderness to palpate, No edema, No calf tenderness / cord - Neuro Neuro: Alert and oriented X 3, No motor deficit, Normal speech Results - Vitals Vitals: Vital Signs - 24 hr 12/30/18 13:13 Temperature 36.5 C Heart Rate 87 Respiratory 20 Rate Blood Pressure 149/102 H O2 Saturation 97 Oxygen O2 Source Room air - Labs Labs: Laboratory Tests 12/30/18 12/30/18 12/30/18 13:20 13:20 13:35 WBC 6.9 RBC 4.91 Hgb 14.9 Hct 43.3 MCV 88.2 MCH 30.4 MCHC 34.5 RDW 12.7 Plt Count 255 MPV 8.2 Neut # (Auto) 3.2 Lymph # (Auto) 3.0 [place] # (Auto) 0.6 Eos # (Auto) 0.1 Baso # (Auto) 0.0 Absolute Nucleated RBC 0.01 Nucleated RBC % 0.1 Sodium 139 Potassium 3.6 Chloride 102 Carbon Dioxide 26 Anion Gap 11.0 BUN 11 Creatinine 0.7 Estimated GFR (MDRD) 92 Glucose 105 H Calcium 9.4 Total Bilirubin 0.6 AST 22 ALT 29 Alkaline Phosphatase 50 Total Protein 7.8 Albumin 4.5 Globulin 3.3 Albumin/Globulin Ratio 1.4 Lipase 35 Urine Color YELLOW Urine Clarity CLEAR Urine pH 5.0 Ur Specific [place] <=1.005 Urine Protein NEGATIVE Urine Glucose (UA) NEGATIVE Urine Ketones NEGATIVE Urine Occult Blood TRACE-LYSE Urine Nitrite NEGATIVE Urine Bilirubin NEGATIVE Urine Urobilinogen 0.2 (NORMAL) Ur Leukocyte Esterase NEGATIVE Ur Microscopic Review NOT INDICATED Urine Culture Comments NOT INDICATED Urine HCG, Qual NEGATIVE PD MEDICAL DECISION MAKING - ED course Complexity details: reviewed old records, reviewed results, considered differential, d/w patient, d/w budget consultant (Talked with Dr. Strange about the patient's presentation last Sunday and labs done as well as prior imaging. He did ask for repeat ultrasound to ensure there is no signs of ductal process and will be in to evaluate the patient.) Departure - Departure Disposition: ED Transfer to [facility] Clinical Impression: Biliary colic Abdominal pain Qualifiers: Abdominal location: right upper quadrant Qualified Code(s): R10.11 - Right upper quadrant pain Condition: Stable Record reviewed to determine appropriate education?: Yes
[2018-12-30 13:51] LABS: BASOPHILS % (AUTO) 0.5 %; EOSINOPHILS # (AUTO) 0.1 10^3/uL (0.0-0.7); HGB - HEMOGLOBIN 14.9 g/dL (12.0-16.0); LYMPHOCYTES % (AUTO) 43.5 %; MEAN CORPUSCULAR HEMOGLOBIN 30.4 pg (27.0-31.0); MEAN CORPUSCULAR HGB CONC 34.5 g/dL (32.0-36.0); MEAN CORPUSCULAR VOLUME 88.2 fL (81.0-99.0); MEAN PLATELET VOLUME 8.2 fL (7.9-10.8); MONOCYTES # (AUTO) 0.6 10^3/uL (0.0-1.0); MONOCYTES % (AUTO) 8.2 %; NEUTROPHILS # (AUTO) 3.2 10^3/uL (1.5-6.6); NEUTROPHILS % (AUTO) 45.8 %; PLT - PLATELET COUNT 255 10^3/uL (130-450); RED BLOOD COUNT 4.91 10^6/uL (4.20-5.40); RED CELL DISTRIBUTION WIDTH 12.7 % (12.0-15.0); WHITE BLOOD COUNT 6.9 x10^3/uL (4.8-10.8)
[2018-12-30 13:51] LABS: BILIRUBIN,URINE NEGATIVE (NEGATIVE); GLUCOSE, URINE (UA) NEGATIVE (NEGATIVE); KETONES,URINE (UA) NEGATIVE (NEGATIVE); LEUKOCYTE ESTERASE, URINE NEGATIVE (NEGATIVE); NITRITE,URINE NEGATIVE (NEGATIVE); OCCULT BLOOD,URINE TRACE-LYSE (NEGATIVE); PROTEIN,URINE NEGATIVE (NEGATIVE); UROBILINOGEN,URINE 0.2 (NORMAL) E.U./dL (NORMAL)
[2018-12-30 13:54] LABS: CLARITY,URINE CLEAR (CLEAR); HCG UR QUAL NEGATIVE
[2018-12-30] MEDS ORDERED: SODIUM CHLORIDE 0.9% 1,000 ML IV ONE (13:59)
[2018-12-30] MEDS ORDERED: ONDANSETRON 4 MG/2 ML VIAL IVP STA ×3 (13:59→19:34)
[2018-12-30] MEDS ORDERED: MORPHINE 10 MG/ML VIAL IVP STA (13:59)
[2018-12-30 14:03] LABS: ALBUMIN 4.5 g/dL (3.2-5.5); ALBUMIN/GLOBULIN RATIO 1.4 (1.0-2.2); BILIRUBIN,TOTAL 0.6 mg/dL (0.2-1.0); CALCIUM 9.4 mg/dL (8.5-10.3); CREATININE 0.7 mg/dL (0.4-1.0); TOTAL PROTEIN 7.8 g/dL (6.7-8.2)
[2018-12-30] MEDS ORDERED: BUPIVACAINE 0.5%-EPI 1:200000 PF 30 ML VIAL ONE (14:59)
[2018-12-30] MEDS ORDERED: HYDROmorphone 1 MG/ML CARPUJECT IVP STA (15:51)
--- NOTE | 2018-12-30 16:14 | ANESTHESIA ---
Pre-Anesthesia VS, & Labs - Diagnosis biliary colic, cholelithiasis - Procedure lap marty Vital Signs: Temp Pulse Resp BP Pulse Ox 36.5 C 87 20 149/102 H 97 12/30/18 13:13 12/30/18 13:13 12/30/18 13:13 12/30/18 13:13 12/30/18 13:13 Height 5 ft 4 in Weight (kg) 81.647 kg Body Mass Index 30.9 - NPO Last Food Intake: 1200 - Is Patient ?: No - Lab Results Current Lab Results: Laboratory Tests 12/30/18 13:20: Sodium 139, Potassium 3.6, Chloride 102, Carbon Dioxide 26, Anion Gap 11.0, BUN 11, Creatinine 0.7, Estimated GFR (MDRD) 92, Glucose 105 H, Calcium 9.4, Total Bilirubin 0.6, AST 22, ALT 29, Alkaline Phosphatase 50, Total Protein 7.8, Albumin 4.5, Globulin 3.3, Albumin/Globulin Ratio 1.4, Lipase 35 12/30/18 13:20: WBC 6.9, RBC 4.91, Hgb 14.9, Hct 43.3, MCV 88.2, MCH 30.4, MCHC 34.5, RDW 12.7, Plt Count 255, MPV 8.2, Neut # (Auto) 3.2, Lymph # (Auto) 3.0, Sac # (Auto) 0.6, Eos # (Auto) 0.1, Baso # (Auto) 0.0, Absolute Nucleated RBC 0.01, Nucleated RBC % 0.1 Fish Bones: 12/30/18 13:20 12/30/18 13:20 Home Medications and Allergies Cetirizine [ZyrTEC] 10 mg PO DAILY 05/28/17 Aspirin [Aspirin EC] 81 mg PO DAILY 11/20/18 EPINEPHrine [Epinephrine] 0.3 mg IJ ONCE PRN 11/20/18 Folic Acid 0.8 mg PO DAILY 11/20/18 Pnv95/Ferrous Fumarate/FA [ Tablet] 1 each PO DAILY 11/20/18 Allergies/Adverse Reactions: Allergies Allergy/AdvReac Type Severity Reaction Status Date / Time bee pollen Allergy Anaphylaxis Verified 12/30/18 13:15 Anes History & Medical History - Anesthetic History Anesthesia Complications: reports: No previous complications - Medical History Cardiovascular: reports: None Pulmonary: reports: None Gastrointestinal: reports: None Urinary: reports: None Neuro: reports: None Musculoskeletal: reports: None Endocrine/Autoimmune: reports: None Blood Disorders: reports: None Skin: reports: None Smoking Status: Former smoker (quit 10 years ago) Psychosocial: reports: No issues indicated - Surgical History Eyes Ears Nose Throat (EENT): Tonsil/Adenoidectomy Gynecologic: Dilation and currettage Orthopedic: Arthroscopic surgery Exam General: Alert, Oriented x3, Cooperative, No acute distress Dental: WNL Mouth Openin Fingerbreadth Neck Mobility: Normal Mallampati classification: II Thyromental Distance: greater than 6 cm Respiratory: Lungs clear, Normal breath sounds, No respiratory distress, No accessory muscle use Cardiovascular: Regular rate, Normal S1, Normal S2, No murmurs Mental/Cognitive Status: Alert/Oriented X3, Normal for patient Plan Anesthesia Type: General Consent for Procedure(s) Verified and Reviewed: Yes Code Status: Attempt Resuscitation ASA classification: 1-Healthy patient Is this case an emergency?: Yes
--- NOTE | 2018-12-30 16:17 | Ultrasound Report ---
Reason: persistent RUQ pain; gallstones on U/S 3 days ago Procedure Date: 12/30/2018 Accession Number: [id number] / [id number] Procedure: US - Abdomen Limited CPT Code: FULL RESULT: EXAM: ABDOMEN ULTRASOUND LIMITED, RUQ EXAM DATE: 12/30/2018 03:49 PM. CLINICAL HISTORY: Persistent RUQ pain; gallstones on U/S 3 days ago. COMPARISON: ABDOMEN LIMITED 12/27/2018 11:41 PM. TECHNIQUE: Real-time scanning was performed with static images obtained. FINDINGS: Liver: Diffusely echogenic. No masses. Normal overall size, 14.5 cm. Main portal vein flow: Hepatopetal. Gallbladder: Numerous gallstones. No wall thickening. No localized tenderness; patient is medicated. Biliary System: CBD measures 2.9 mm. No intrahepatic or extrahepatic ductal dilatation. Other: Unremarkable right kidney. IMPRESSION: 1. Cholelithiasis. 2. Fatty liver. RADIA
[2018-12-30] MEDS ORDERED: MORPHINE 2 MG/ML CARPUJECT IVP PRN (16:32)
[2018-12-30] MEDS ORDERED: ONDANSETRON 4 MG/2 ML VIAL IVP PRN (17:43)
[2018-12-30] MEDS: SODIUM CHLORIDE FLUSH 0.9% 10 ML SYRINGE IVP PRN (19:42)
[2018-12-30] MEDS ORDERED: ONDANSETRON 4 MG/2 ML VIAL ONE (19:44)
[2018-12-31] MEDS ORDERED: D5.45NS W/20 MEQ KCL 1,000 ML IV SCH (00:01)
[2018-12-31 06:11] LABS: HCG UR QUAL NEGATIVE
[2018-12-31] MEDS: SODIUM CHLORIDE FLUSH 0.9% 10 ML SYRINGE IVP PRN (09:58)
[2018-12-31] MEDS ORDERED: LACTATED RINGERS 1,000 ML IV SCH (10:00)
[2018-12-31] MEDS ORDERED: METOCLOPRAMIDE 10 MG/2 ML VIAL IVP ONE (11:00)
[2018-12-31] MEDS ORDERED: GLYCOPYRROLATE 1 MG/5 ML VIAL IVP ONE (11:00)
[2018-12-31] MEDS ORDERED: ACETAMINOPHEN 1,000 MG/100 ML 100 ML IV ONE (11:00)
[2018-12-31] MEDS ORDERED: DEXAMETHASONE 4 MG/ML VIAL IVP ONE (11:00)
[2018-12-31] MEDS ORDERED: raNITIdine INJ 25 MG/ML VIAL IV ONE (11:00)
[2018-12-31] MEDS ORDERED: fentaNYL 100 MCG/2 ML VIAL IVP ONE (11:00)
[2018-12-31] MEDS ORDERED: KETOROLAC 30 MG/ML VIAL IVP ONE (11:00)
[2018-12-31] MEDS ORDERED: LIDOCAINE-MPF 2% 5 ML VIAL IM ONE (11:00)
[2018-12-31] MEDS ORDERED: PROPOFOL 200 MG/20 ML VIAL IVP ONE (11:00)
[2018-12-31] MEDS ORDERED: ONDANSETRON 4 MG/2 ML VIAL IVP ONE (11:00)
[2018-12-31] MEDS ORDERED: NEOSTIGMINE 1 MG/1 ML 10 ML MDV IVP ONE (11:00)
[2018-12-31] MEDS ORDERED: diphenhydrAMINE INJ 50 MG/ML VIAL IVP ONE (11:00)
[2018-12-31] MEDS ORDERED: MIDAZOLAM 2 MG/2 ML VIAL IVP ONE (11:00)
[2018-12-31] MEDS ORDERED: ROCURONIUM 50 MG/5 ML VIAL IVP ONE (11:00)
[2018-12-31] MEDS ORDERED: LACTATED RINGERS 1,000 ML IV ONE ×2 (11:05→13:03)
[2018-12-31] MEDS: BUPIVACAINE 0.5%-EPI 1:200000 PF 30 ML VIAL ONE ×2 (11:38→12:00)
[2018-12-31] MEDS ORDERED: HYDROcod/ACETAM 5/325 MG TABLET PO PRN (12:08)
--- NOTE | 2018-12-31 12:42 | OPERATIVE REPORT ---
DATE OF SERVICE: 12/31/2018 Physician: Joe Strange MD PREOPERATIVE DIAGNOSIS: Biliary colic. POSTOPERATIVE DIAGNOSIS: Biliary colic. PROCEDURE PERFORMED: Laparoscopic cholecystectomy. SURGEON: Joe Strange MD INDICATIONS FOR PROCEDURE: The patient is a 43-year-old woman who presented to the ER for the second time last night with intractable nausea and right upper quadrant abdominal pain. Although she had a normal white count and LFTs as well as an ultrasound without signs of cholecystitis, she has been unable to tolerate her symptoms, requesting urgent cholecystectomy. Since she ate prior to coming to the ER, plans were made to admit her overnight and do the procedure in the morning. PROCEDURE IN DETAIL: The risks and benefits were explained to the patient and she agreed to the procedure. She was taken to the operating room, given general anesthesia and intubated. The abdomen was prepped and draped. A timeout was performed, and everyone in the room agreed to the procedure. We began by making a 12 mm supraumbilical incision and carried this down inside the peritoneal cavity, inserted a Jasen trocar and secured it in place. The abdomen was insufflated to 15 mmHg and three more 5 mm trocars were inserted under vision of the camera, one below the xiphoid process and two below the right costal margin. The gallbladder was retracted towards the head and the fundus was dissected until a critical view was obtained. LigaSure device was used to take the cystic artery. The cystic duct was doubly clipped distally, and again taken with the LigaSure device. The gallbladder was removed off the liver bed using the LigaSure, placed in an Endo Catch bag and removed. There was no sign of residual bleeding or perforation of the gallbladder. It was sent to pathology. The fascia of the umbilical port site was closed using 0 Vicryl stitch. The skin of all four incisions were closed using 4-0 Monocryl and Dermabond after infusing 15 mL of Marcaine. This terminated the procedure. The patient tolerated it well. She was extubated in the operating room and taken to the recovery room in stable condition. INSTRUMENT COUNTS: Correct. ESTIMATED BLOOD LOSS: 5 mL SPECIMEN: Gallbladder. COMPLICATIONS: None. PLAN: The patient will go home later today. TD: 12/31/2018 12:16 [facility]
[2018-12-31] MEDS ORDERED: MORPHINE 2 MG/ML CARPUJECT ONE ×2 (12:44→12:48)
[2018-12-31 14:47] VITALS: BP 122/74
[2019-01-01] MEDS ORDERED: FERROUS FUMARATE PO SCH (09:00)
[2019-01-01] MEDS ORDERED: [UNRECOGNIZED DRUG - OTHER] PO SCH (09:00)
[2019-01-01] MEDS ORDERED: PNV95 PO SCH (09:00)
[2019-01-01] MEDS ORDERED: CETIRIZINE 10 MG PO SCH (09:00)
[2019-01-01] MEDS ORDERED: FOLIC ACID 0.8 MG PO SCH (09:00)
[2019-01-01] MEDS ORDERED: ASPIRIN 81 MG PO SCH (09:00)
== END 2018-12-31 15:11 | disposition home or self-care (01) ==
LOC: ED 13:07 → SDS 14:20 → MS2 16:31 → SDS 12-31 15:11
PROVIDERS: ATTEND Surgery
PROC: 0FT44ZZ Resection of Gallbladder, Percutaneous Endoscopic Approach (ICD-10-PCS; principal; 2018-12-30)
DX: K80.10 Calculus of gallbladder with chronic cholecystitis without obstruction (principal); Z87.891 Personal history of nicotine dependence
CPT/HCPCS: 36415; 47562; 76705; 80053; 81003; 81025; 83690; 85025; 96365; 96366; 96375; 96376; 99284; A9270; J0131; J1170; J1200; J2765; J7120; 81001; 87086; 96361

== ENCOUNTER 2021-04-30 08:00 | Outpatient (CLI) | payer OTHER | END 2021-04-30 23:59 | disposition home or self-care (01) | LOC: LAB.S 08:00 | PROVIDERS: ATTEND Emergency Medicine | DX: Z01.84 Encounter for antibody response examination (principal); J30.9 Allergic rhinitis, unspecified; U07.1 COVID-19 | CPT/HCPCS: 86769 ==

== ENCOUNTER 2021-09-20 22:09 | Emergency (ER) | payer OTHER ==
[2021-09-20 22:29] LABS: BASOPHILS % (AUTO) 0.5 %; EOSINOPHILS # (AUTO) 0.1 10^3/uL (0.0-0.7); HCT - HEMATOCRIT 41.6 % (37.0-47.0); HGB - HEMOGLOBIN 14.7 g/dL (12.0-16.0); LYMPHOCYTES # (AUTO) 3.2 10^3/uL (1.5-3.5); MEAN CORPUSCULAR HEMOGLOBIN 31.4 pg (27.0-31.0); MEAN CORPUSCULAR HGB CONC 35.3 g/dL (32.0-36.0); MEAN CORPUSCULAR VOLUME 88.9 fL (81.0-99.0); MEAN PLATELET VOLUME 10.6 fL (7.9-10.8); MONOCYTES # (AUTO) 0.6 10^3/uL (0.0-1.0); MONOCYTES % (AUTO) 8.6 %; NEUTROPHILS # (AUTO) 2.5 10^3/uL (1.5-6.6); NEUTROPHILS % (AUTO) 38.7 %; PLT - PLATELET COUNT 232 10^3/uL (130-450); RED BLOOD COUNT 4.68 10^6/uL (4.20-5.40); RED CELL DISTRIBUTION WIDTH 12.5 % (12.0-15.0); WHITE BLOOD COUNT 6.4 x10^3/uL (4.8-10.8)
--- NOTE | 2021-09-20 22:40 | XRAY Report ---
PROCEDURE: Chest 1 View X-Ray INDICATIONS: Chest pain COMMENTS: Chest pain/ Pt states centerd px with irregular heart beat SATHYA ORS: none TECHNIQUE: One view of the chest was acquired. COMPARISON: None FINDINGS: Surgical changes and devices: None. Lungs and pleura: No pleural effusions or pneumothorax. Lungs are clear. Mediastinum: Mediastinal contours appear normal. Heart size is normal. Bones and chest wall: No suspicious bony lesions. Overlying soft tissues appear unremarkable. IMPRESSION: No acute cardiopulmonary abnormality. Reviewed by: Isidro Alicea on 09/20/2021 10:38 PM [facility] Approved by: Isidro Alicea on 09/20/2021 10:38 PM [facility] Station ID: [id number]
--- NOTE | 2021-09-20 22:49 | ED Physician Documentation ---
History of Present Illness - Stated complaint Stated Complaint: CHEST PALPITATIONS,TIGHTNESS - Chief complaint Chief Complaint: Cardiac - History obtained from History obtained from: Patient - Additonal information Additional information: 45yF former smoker (>1y ago) with FH OK in father at age 60 p/w intermittent palpitations in the chest since yesterday accompanied by progressive L sided chest heaviness that is nonradiating, mild, nonexertional. palpitations and chest heaviness heaviness are worse at nighttime while lying still in bed. denies soa, cough, fever, pleurisy, leg swelling or calf pain. patient states she had three cups of coffee yesterday which is the norm for her. 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 HEENT: Tonsil/Adenoidectomy - Present Medications Home Medications: Ambulatory Orders Medication Instructions Recorded Confirmed Cetirizine [ZyrTEC] 10 mg PO DAILY 05/28/17 11/22/18 Aspirin [Aspirin EC] 81 mg PO DAILY 11/20/18 11/22/18 EPINEPHrine [Epinephrine] 0.3 mg IJ ONCE PRN 11/20/18 11/20/18 Folic Acid 0.8 mg PO DAILY 11/20/18 11/22/18 Pnv No.95/Ferrous Fum/Folic AC 1 each PO DAILY 11/20/18 11/22/18 [ Tablet] Hydrocodone/Acetaminophen 1 - 2 each PO Q6H PRN #20 tablet 12/28/18 [Hydrocodon-Acetaminophen 5-325] - Allergies Allergies/Adverse Reactions: Allergies Allergy/AdvReac Type Severity Reaction Status Date / Time bee pollen Allergy Anaphylaxis Verified 09/20/21 22:13 hydromorphone [From Dilaudid] AdvReac Mild Nausea Verified 09/20/21 22:13 - Social History Does the pt smoke?: No Smoking Status: Never smoker Does the pt drink ETOH?: Yes Does the pt have substance abuse?: No - Immunizations Immunizations are current?: Yes PD ED PE NORMAL - Vitals Vital signs reviewed: Yes - General General: Alert and oriented X 3, No acute distress, Well developed/nourished - HEENT HEENT: Atraumatic, PERRL, EOMI - Neck Neck: Supple, no meningeal sign - Cardiac Cardiac: RRR - Respiratory Respiratory: No respiratory distress, Clear bilaterally - Abdomen Abdomen: Non tender, Non distended - Back Back: No CVA TTP - Derm Derm: Normal color, Warm and dry - Extremities Extremities: No deformity, No edema, No calf tenderness / cord - Neuro Neuro: Alert and oriented X 3, No motor deficit, No sensory deficit, Normal speech - Psych Psych: Normal mood, Normal affect Results - Vitals Vitals: Vital Signs - 24 hr 09/20/21 09/20/21 09/20/21 22:13 22:16 23:17 Temperature 36.5 C 36.5 C Heart Rate 92 92 Respiratory 16 16 15 Rate Blood Pressure 160/90 H 160/90 H O2 Saturation 98 98 Oxygen O2 Source Room air - EKG (time done) 2221 Rate: Rate (enter#) (93) Rhythm: NSR, Other (multiple PVCs) Intervals: Normal ND, QRS normal QRS: Normal Ischemia: Normal ST segments Computer interpretation: Agree with computer - Labs Labs: Laboratory Tests 09/20/21 09/20/21 09/20/21 22:22 22:22 22:22 WBC 6.4 RBC 4.68 Hgb 14.7 Hct 41.6 MCV 88.9 MCH 31.4 H MCHC 35.3 RDW 12.5 Plt Count 232 MPV 10.6 Neut # (Auto) 2.5 Lymph # (Auto) 3.2 [place] # (Auto) 0.6 Eos # (Auto) 0.1 Baso # (Auto) 0.0 Absolute Nucleated RBC 0.00 Nucleated RBC % 0.0 Sodium 137 Potassium 3.5 Chloride 105 Carbon Dioxide 19 L Anion Gap 13.0 BUN 11 Creatinine 0.8 Estimated GFR (MDRD) 78 L Glucose 90 Calcium 9.1 Total Bilirubin 0.5 AST 17 ALT 27 Alkaline Phosphatase 43 Troponin I High Sens 3.8 Total Protein 7.4 Albumin 4.3 Globulin 3.1 Albumin/Globulin Ratio 1.4 Lipase 94 H PD MEDICAL DECISION MAKING - ED course ED course: 45yF p/w palpitations, multiple PVCs on monitor and on EKG. labwork, CXR noncontributory. HEART score 1 (risk factor). Plan to f/u with her pmd. return precautions given. Departure - Departure Disposition: 01 Home, Self Care Clinical Impression: Palpitations, PVC (premature ventricular contraction), Chest heaviness Condition: Good Instructions: Premature Ventricular Contract About Comments: You were seen in the ED for evaluation of chest heaviness and palpitations and found to have PVCs. Please follow up with your primary doctor for referral to cardiology. In the meantime, drink lots of water and try to lower your caffeine intake. Return to the ED if you develop new or worsening symptoms or have other concerns.
[2021-09-20 23:10] LABS: ALBUMIN 4.3 g/dL (3.2-5.5); ALBUMIN/GLOBULIN RATIO 1.4 (1.0-2.2); BILIRUBIN,TOTAL 0.5 mg/dL (0.2-1.0); CALCIUM 9.1 mg/dL (8.5-10.3); CREATININE 0.8 mg/dL (0.4-1.0); POTASSIUM 3.5 mmol/L (3.5-5.0); TOTAL PROTEIN 7.4 g/dL (6.7-8.2)
[2021-09-20 23:51] VITALS: BP 132/79
== END 2021-09-20 23:58 | disposition home or self-care (01) ==
LOC: ED 22:09
DX: I49.3 Ventricular premature depolarization (principal); R07.89 Other chest pain; Z79.82 Long term (current) use of aspirin; Z82.49 Family history of ischemic heart disease and other diseases of the circulatory system; Z87.891 Personal history of nicotine dependence
CPT/HCPCS: 36415; 80053; 83690; 84484; 85025; 93005; 99284

== ENCOUNTER 2023-09-26 08:22 | Outpatient (CLI) | payer OTHER ==
--- NOTE | 2023-09-27 09:03 | Mammography Report ---
BILATERAL DIGITAL SCREENING MAMMOGRAM 3D/2D: 09/26/2023 CLINICAL: Routine screening. Comparison is made to exam dated: 02/19/2013 mammogram - [facility]. Both breasts are heterogeneously dense, which may obscure small masses (category c / 51-75% glandular tissue). No significant masses, calcifications, or other findings are seen in either breast. There has been no significant interval change. IMPRESSION: NEGATIVE There is no mammographic evidence of malignancy. A 1 year screening mammogram is recommended. Based on Tyrer-Cuzick model (a risk assessment model), the patient's lifetime risk is 23.2% and her 1 0 year risk is 4.8%. If a patient has an elevated risk, a more comprehensive evaluation should be con sidered and/or a referral to a genetic counselor. The [place] [employer], [employer] [place] [employer], and NCCN Guidelines advise the consideration of Breast MRI as an adjunct to screening mammog yesenia in patients whose "Lifetime risk to develop breast cancer" is 20% or higher. This exam was interpreted at Station ID: [id number]. NOTE: For mammograms, a report in lay terms will be sent to the patient. Approximately 15% of breast malignancies will not be visualized mammographically. In the management of a palpable breast mass, a negative mammogram must not discourage biopsy of a clinically suspicious lesion. Electronically Signed By: Mack ernandez/jairo:09/26/2023 16:56:37 letter sent: No_Letter ACR BI-RADS Category 1: Negative 3341F PARENCHYMAL PATTERN: (D) - The breast(s) demonstrate(s) heterogeneously dense fibroglandular parjean claude lujan. BI-RADS CATEGORY: (1) - 1 Mammogram [id number] 1 year screening LATERALITY: (B)
== END 2023-09-26 08:23 | disposition home or self-care (01) ==
LOC: DI.N 08:22
PROVIDERS: ATTEND Registered Nurse
DX: Z12.31 Encounter for screening mammogram for malignant neoplasm of breast (principal); R92.333 Mammographic heterogeneous density, bilateral breasts